=== PATIENT | female | born 1960 | race Caucasian/White ===

== ENCOUNTER 2019-01-15 10:15 | Inpatient (IN) | payer BC ==
[2019-01-15 12:09] VITALS: BMI 31.5
--- NOTE | 2019-01-15 13:56 | HP ---
COWS - Scale Resting Pulse: 0= [place] 80 or Below Sweatin= Chills/Flushing Restless Observation: 1= Difficult to Sit Still Pupil Size: 1= Pupils >than Normal Bone or Joint Aches: 2= Severe Diffuse Aches Runny Nose/ Eye Tearin= Runny Nose/Eyes GI Upset > 30mins: 2= Nausea/Diarrhea Tremor Observation: 2= Slight Tremor Visible Yawning Observation: 1= 1-2x During Session Anxiety or Irritability: 2=Irritable/Anxious Goose Flesh Skin: 0=Smooth Skin COWS Score: 14 CIWA Score - Admission Criteria [facility] Guidelines: Admission for Medically Managed Detox: Requires at least one of the followin. CIWA greater than 12 2. Seizures within the past 24 hours 3. Delirium tremens within the past 24 hours 4. Hallucinations within the past 24 hours 5. Acute intervention needed for co occurring medical disorder 6. Acute intervention needed for co occurring psychiatric disorder 7. Severe withdrawal that cannot be handled at a lower level of care (continued vomiting, continued diarrhea, abnormal vital signs) requiring intravenous medication and/or fluids 8. Admission ROS [facility] - HPI Chief Complaint: i need help to stop using heroin Allergies/Adverse Reactions: Allergies Allergy/AdvReac Type Severity Reaction Status Date / Time No Known Allergies Allergy Verified 01/15/19 11:58 History of Present Illness: this 58 years old female with heroin dependence,need help to stop,withdrawal symptom,never been in detox before, type 2 dm no med hypertension and barrette esophagus denied seizure denied syncope arthritis both knees tear meniscus both knees anxiety,depression,insomnia low back pain - Ebola screening Have you traveled outside of the country in the last 21 days: No Have you had contact with anyone from an Ebola affected area: No Do you have a fever: No - Review of Systems Constitutional: Chills, Malaise, Night Sweats, Changes in sleep EENT: reports: Tearing, Nose Congestion Respiratory: reports: No Symptoms reported, Other (asthma) Cardiac: reports: No Symptoms Reported GI: reports: Nausea, Poor Appetite, Abdominal cramping : reports: No Symptoms Reported Musculoskeletal: reports: Back Pain, Joint Pain, Muscle Pain Integumentary: reports: Dryness Neuro: reports: Headache, Tremors Endocrine: reports: No Symptoms Reported, Other (type 2 dm) Hematology: reports: No Symptoms Reported Psychiatric: reports: No Sypmtoms Reported, Judgement Intact, Mood/Affect Appropiate, Anxious, Depressed Other Systems: Reviewed and Negative Patient History - Patient Medical History Hx Anemia: No Hx Asthma: Yes (on albuterol inhaler) Hx Chronic Obstructive Pulmonary Disease (COPD): No Hx Cancer: No Hx Cardiac Disorders: No Hx Congestive Heart Failure: No Hx Hypertension: Yes (on med) Hx Hypercholesterolemia: No Hx Pacemaker: No HX Cerebrovascular Accident: No Hx Seizures: No Hx Dementia: No Hx Diabetes: Yes (type 2 dm) Hx Gastrointestinal Disorders: Yes (amin esophagus) Hx Liver Disease: No Hx Genitourinary Disorders: No Hx Sexually Transmitted Disorders: No Hx Renal Disease (ESRD): No Hx Thyroid Disease: No Hx Human Immunodeficiency Virus (HIV): No (last 09/15) Hx Hepatitis C: No Hx Depression: Yes Hx Suicide Attempt: No Hx Bipolar Disorder: No Hx Schizophrenia: No Other Medical History: insomnia,no suicidlal,no homicidal - Patient Surgical History Past Surgical History: No Hx Hysterectomy: Yes (for dropped uterus) - PPD History Previous Implant?: Yes Documented Results: Negative w/o proof Implanted On Prior R Admission?: No PPD to be Administered?: No - Reproductive History Patient is a Female of Child Bearing Age (11 -55 yrs old): No - Smoking Cessation Smoking history: Never smoked Have you smoked in the past 12 months: No - Substance & Tx. History Hx Alcohol Use: No Hx Substance Use: Yes Substance Use Type: Heroin Hx Substance Use Treatment: No - Substances abused Heroin Substance route: Inhalation Frequency: Daily Amount used: 1 bundle Age of first use: 57 Date of last use: 01/15/19 Family Disease History - Family Disease History Family History: Denies Admission Physical Exam BHS - Vital Signs Vital Signs: Vital Signs - 24 hr 01/15/19 11:57 Temperature 97.4 F L Pulse Rate 67 Respiratory 18 Rate Blood Pressure 168/96 - Physical General Appearance: Yes: Moderate Distress, Tremorous, Irritable, Sweating, Anxious HEENTM: Yes: Normal ENT Inspection, DAE, Pharynx Normal Respiratory: Yes: Lungs Clear, Normal Breath Sounds, No Respiratory Distress, Other (asthma) Neck: Yes: Within Normal Limits, Supple, Trachea in good position Breast: Yes: Breast Exam Deferred Cardiology: Yes: Within Normal Limits, Regular Rhythm, Regular Rate, S1, S2 Abdominal: Yes: Within Normal Limits, Normal Bowel Sounds, Non Tender, Flat, Soft, Other (transvaginal hysterctomy) Genitourinary: Yes: Within Normal Limits Back: Yes: Muscle Spasm Musculoskeletal: Yes: Back pain, Joint Stiffness, Muscle Pain Extremities: Yes: Tremors Neurological: Yes: observatory director II-XII NML intact, Fully Oriented, Alert, Motor Strength 5/5 Integumentary: Yes: Dry Lymphatic: Yes: Within Normal Limits - Diagnostic (1) Opioid dependence with withdrawal Current Visit: Yes Status: Acute (2) Essential hypertension Current Visit: Yes Status: Acute (3) DM2 (diabetes mellitus, type 2) Current Visit: Yes Status: Acute (4) Arthritis Current Visit: Yes Status: Acute (5) Low back pain Current Visit: Yes Status: Acute (6) Amin esophagus Current Visit: Yes Status: Acute Cleared for Admission S - Detox or Rehab [facility] Level of Care: Medically Managed Detox Regimen/Protocol: Methadone Screened but not Admitted - Documentation of Visit Screened but not Admitted: No Breathalyzer - Breathalyzer Breathalyzer: 0 Urine Drug Screen - Test Device Lot number: [id number] Expiration date: 10/27/20 - Control Is test valid?: Yes - Results Drug screen NEGATIVE: No Urine drug screen results: FEN-Fentanyl, MOP-Opiates, OXY-Oxycodone Inpatient Rehab Admission - Rehab Decision to Admit Inpatient rehab admission?: No
[2019-01-15] MEDS ORDERED: MAG HYDROX/AL HYDROX/SIMETH 30 ML UNIT-DOSE CUP PO PRN (14:14)
[2019-01-15] MEDS ORDERED: MAGNESIUM HYDROX 2400MG/30ML ORAL SUSPENSION 30 ML CUP PO PRN (14:14)
[2019-01-15] MEDS ORDERED: cloNIDine HCL 0.1 MG TABLET PO PRN (14:14)
[2019-01-15] MEDS ORDERED: MENTHOL/PHENOL 1 EACH UD MM PRN (14:14)
[2019-01-15] MEDS ORDERED: METHADONE HCL 10 MG TABLET (FOR DETOX USE ONLY) PO ONE ×2 (14:14→15:15)
[2019-01-15] MEDS ORDERED: BISMUTH SUBSALICYLATE 262 MG/15 ML BTL PO PRN (14:14)
[2019-01-15] MEDS ORDERED: MAGNESIUM CITRATE 300 ML BOTTLE PO PRN (14:14)
[2019-01-15] MEDS ORDERED: ACETAMINOPHEN 325 MG TABLET (FP) PO PRN (14:14)
[2019-01-15] MEDS ORDERED: IBUPROFEN 400 MG TABLET (FP) PO PRN (14:14)
[2019-01-15] MEDS: diazePAM 5 MG TABLET PO PRN ×2 (16:05→20:40)
--- NOTE | 2019-01-15 16:28 | EKG ---
Test Reason : Blood Pressure : / mmHG Vent. Rate : 066 BPM Atrial Rate : 066 BPM P-R Int : 172 ms QRS Dur : 092 ms QT Int : 400 ms P-R-T Axes : 047 002 027 degrees QTc Int : 419 ms NORMAL SINUS RHYTHM NONSPECIFIC T WAVE ABNORMALITY ABNORMAL ECG NO PREVIOUS ECGS AVAILABLE Confirmed by DANIEL NAVARRO MD ([id number]) on 01/15/2019 4:28:04 PM Referred By: Confirmed By:DANIEL NAVARRO MD
[2019-01-15 16:39] LABS: HEMATOCRIT 34.2 % (32.4-45.2); HEMOGLOBIN 10.8 GM/dL (10.7-15.3); MCH 23.8 pg (25.7-33.7); MCHC 31.6 g/dl (32.0-36.0); MEAN CELL VOLUME 75.5 fl (80-96); PLATELET COUNT 346 K/MM3 (134-434); RBC 4.54 M/mm3 (3.60-5.2); RDW 17.8 % (11.6-15.6); WHITE BLOOD COUNT 7.4 K/mm3 (4.0-10.0)
[2019-01-15 16:48] LABS: ALBUMIN 3.6 g/dl (3.4-5.0); BILIRUBIN,TOTAL 0.8 mg/dL (0.2-1); BLOOD UREA NITROGEN 11.4 mg/dL (7-18); CREATININE 0.8 mg/dL (0.55-1.3); POTASSIUM 4.4 mmol/L (3.5-5.1); TOT PROT 7.5 g/dl (6.4-8.2)
[2019-01-15] MEDS: cloNIDine HCL 0.1 MG TABLET PO PRN (17:04)
[2019-01-15] MEDS: METHOCARBAMOL 500 MG TABLET PO PRN ×2 (17:04→22:19)
[2019-01-15] MEDS: THIAMINE HCL 100 MG TABLET (FP) PO SCH (22:17)
[2019-01-15] MEDS: MELATONIN 5 MG TABLETS PO PRN (22:17)
[2019-01-16] MEDS: hydrOXYzine PAMOATE 25 MG CAPSULE (FP) PO PRN ×2 (04:04→20:53)
[2019-01-16] MEDS: diazePAM 5 MG TABLET PO PRN ×4 (04:04→20:53)
--- NOTE | 2019-01-16 09:06 | PN ---
BHS COWS - Scale Resting Pulse: 0= [place] 80 or Below Sweatin= Chills/Flushing Restless Observation: 0= Sits Still Pupil Size: 1= Pupils >than Normal Bone or Joint Aches: 1= Mild Discomfort Runny Nose/ Eye Tearin= None GI Upset > 30mins: 1= Stomach Cramp Tremor Observation of Outstretched Hands: 2= Slight Tremor Visible Yawning Observation: 0= None Anxiety or Irritability: 2=Irritable/Anxious Goose Flesh Skin: 3=Piloerection COWS Score: 11 BHS Progress Note (SOAP) Subjective: 58 years old female admitted on 01/15/19 for acute opiate withdrawal sx management doing well with methadone detox regimen tolerate well less tremor sleep better at night chronic back pain treated with lidocaine patch and robaxin long history of hypertension treated with lisinopril 20 mg po od GERD treated wtih zantac 150 mg po bid discontinue motrin patient was taking suboxone 8-2mg sl tid last filled 7 days on 12/07/18 S1S2 Regular clear lung bilaterally abdomen soft hyperactive bowel sound x 4 discuss the possibility of methadone maintenance program for chronic pain and opiate misuse Objective: 01/16/19 09:13 Vital Signs Temperature 97.1 F L 01/16/19 06:46 Pulse Rate 53 L 01/16/19 06:46 Respiratory Rate 18 01/16/19 06:46 Blood Pressure 139/71 01/16/19 06:46 O2 Sat by Pulse Oximetry (%) Laboratory Last Values WBC 7.4 K/mm3 (4.0-10.0) 01/15/19 14:30 RBC 4.54 M/mm3 (3.60-5.2) 01/15/19 14:30 Hgb 10.8 GM/dL (10.7-15.3) 01/15/19 14:30 Hct 34.2 % (32.4-45.2) 01/15/19 14:30 MCV 75.5 fl (80-96) L 01/15/19 14:30 MCH 23.8 pg (25.7-33.7) L 01/15/19 14:30 MCHC 31.6 g/dl (32.0-36.0) L 01/15/19 14:30 RDW 17.8 % (11.6-15.6) H 01/15/19 14:30 Plt Count 346 K/MM3 (134-434) 01/15/19 14:30 MPV 7.0 fl (7.5-11.1) L 01/15/19 14:30 Sodium 141 mmol/L (136-145) 01/15/19 14:30 Potassium 4.4 mmol/L (3.5-5.1) 01/15/19 14:30 Chloride 106 mmol/L (98-107) 01/15/19 14:30 Carbon Dioxide 29 mmol/L (21-32) 01/15/19 14:30 Anion Gap 5 MMOL/L (8-16) L 01/15/19 14:30 BUN 11.4 mg/dL (7-18) 01/15/19 14:30 Creatinine 0.8 mg/dL (0.55-1.3) 01/15/19 14:30 Est GFR (CKD-EPI)AfAm 93.53 01/15/19 14:30 Est GFR (CKD-EPI)NonAf 80.70 01/15/19 14:30 POC Glucometer 133 UNITS (80-120) 01/15/19 13:41 Random Glucose 94 mg/dL (74-106) 01/15/19 14:30 Calcium 9.0 mg/dL (8.5-10.1) 01/15/19 14:30 Total Bilirubin 0.8 mg/dL (0.2-1) 01/15/19 14:30 AST 18 U/L (15-37) 01/15/19 14:30 ALT 20 U/L (13-61) 01/15/19 14:30 Alkaline Phosphatase 87 U/L (45-117) 01/15/19 14:30 Total Protein 7.5 g/dl (6.4-8.2) 01/15/19 14:30 Albumin 3.6 g/dl (3.4-5.0) 01/15/19 14:30 lab noted Assessment: 01/16/19 09:14 opiate withdrawal sx hypertension GERD chronic back pain Plan: continue methadone detox regimen and supportive measure
[2019-01-16] MEDS ORDERED: METHADONE (DETOX) 20 MG, METHADONE (DETOX) 5 MG PO ONE (10:00)
[2019-01-16] MEDS ORDERED: METHADONE HCL 5 MG TABLET (FOR DETOX USE ONLY) PO ONE (10:00)
[2019-01-16] MEDS ORDERED: RANITIDINE HCL 150 MG TABLET (FP) PO SCH (10:00)
[2019-01-16] MEDS: PRENATAL VITAMINS W/ FOLIC ACID TABLET (FP) PO SCH (10:38)
[2019-01-16] MEDS: LISINOPRIL 20 MG PO SCH (10:38)
[2019-01-16] MEDS: PATIENT'S OWN MEDICATION (NON-FORMULARY) (Omeprazole [Omeprazole] 20 MG) PO SCH (10:38)
[2019-01-16] MEDS: LIDOCAINE 5% TOPICAL PATCH TP SCH (10:39)
[2019-01-16] MEDS: METHOCARBAMOL 500 MG TABLET PO PRN ×2 (12:33→20:53)
[2019-01-16] MEDS: cloNIDine HCL 0.1 MG TABLET PO PRN (14:45)
[2019-01-16] MEDS: THIAMINE HCL 100 MG TABLET (FP) PO SCH (21:00)
[2019-01-16] MEDS: LIDOCAINE PATCH REMOVAL MC SCH (21:00)
[2019-01-16 23:08] LABS: EPI CELLS 1.3 /HPF (0-5/HPF); HYALINE CASTS 0 /lpf (0-8); PH,URINE 8.5 (5.0-8.0); URINE APPEARANCE CLEAR; URINE BACTERIA 22.5 /hpf (NEGATIVE); URINE BILIRUBIN NEGATIVE (NEGATIVE); URINE COLOR YELLOW; URINE GLUCOSE (UA) NEGATIVE (NEGATIVE); URINE KETONE NEGATIVE (NEGATIVE); URINE LEUK ESTERASE TRACE (NEGATIVE); URINE NITRITE NEGATIVE (NEGATIVE); URINE PROTEIN NEGATIVE (NEGATIVE); URINE RBC 2 /hpf (0-4); URINE UROBILINOGEN 0.2 mg/dL (0.2-1.0); URINE WBC 2 /hpf (0-5)
[2019-01-16] MEDS: MELATONIN 5 MG TABLETS PO PRN (23:31)
[2019-01-17] MEDS: diazePAM 5 MG TABLET PO PRN ×5 (04:50→22:37)
[2019-01-17] MEDS: ACETAMINOPHEN 325 MG TABLET (FP) PO PRN ×2 (04:50→19:35)
[2019-01-17] MEDS: METHOCARBAMOL 500 MG TABLET PO PRN ×3 (04:55→20:43)
[2019-01-17] MEDS: hydrOXYzine PAMOATE 25 MG CAPSULE (FP) PO PRN ×3 (04:59→20:42)
--- NOTE | 2019-01-17 09:10 | PN ---
BHS COWS - Scale Resting Pulse: 0= [place] 80 or Below Sweatin= Chills/Flushing Restless Observation: 0= Sits Still Pupil Size: 1= Pupils >than Normal Bone or Joint Aches: 1= Mild Discomfort Runny Nose/ Eye Tearin= Nasal Congestion GI Upset > 30mins: 1= Stomach Cramp Tremor Observation of Outstretched Hands: 1= Tremor [place], Not Seen Yawning Observation: 1= 1-2x During Session Anxiety or Irritability: 1=Feels Anxious/Irritable Goose Flesh Skin: 0=Smooth Skin COWS Score: 8 S Progress Note (SOAP) Subjective: doing well with methadone detox regimen chronic back pain resolved by lidocaine patch and robaxin mild body aches with less tremor resting on bed comfortably aftercare [place] encourage medication assisted treatment Objective: 01/17/19 09:07 Vital Signs Temperature 97 F L 01/16/19 21:51 Pulse Rate 71 01/16/19 21:51 Respiratory Rate 18 01/17/19 06:30 Blood Pressure 136/83 01/16/19 21:51 O2 Sat by Pulse Oximetry (%) Laboratory Last Values WBC 7.4 K/mm3 (4.0-10.0) 01/15/19 14:30 RBC 4.54 M/mm3 (3.60-5.2) 01/15/19 14:30 Hgb 10.8 GM/dL (10.7-15.3) 01/15/19 14:30 Hct 34.2 % (32.4-45.2) 01/15/19 14:30 MCV 75.5 fl (80-96) L 01/15/19 14:30 MCH 23.8 pg (25.7-33.7) L 01/15/19 14:30 MCHC 31.6 g/dl (32.0-36.0) L 01/15/19 14:30 RDW 17.8 % (11.6-15.6) H 01/15/19 14:30 Plt Count 346 K/MM3 (134-434) 01/15/19 14:30 MPV 7.0 fl (7.5-11.1) L 01/15/19 14:30 Sodium 141 mmol/L (136-145) 01/15/19 14:30 Potassium 4.4 mmol/L (3.5-5.1) 01/15/19 14:30 Chloride 106 mmol/L (98-107) 01/15/19 14:30 Carbon Dioxide 29 mmol/L (21-32) 01/15/19 14:30 Anion Gap 5 MMOL/L (8-16) L 01/15/19 14:30 BUN 11.4 mg/dL (7-18) 01/15/19 14:30 Creatinine 0.8 mg/dL (0.55-1.3) 01/15/19 14:30 Est GFR (CKD-EPI)AfAm 93.53 01/15/19 14:30 Est GFR (CKD-EPI)NonAf 80.70 01/15/19 14:30 POC Glucometer 96 UNITS (80-120) 01/17/19 04:53 Random Glucose 94 mg/dL (74-106) 01/15/19 14:30 Calcium 9.0 mg/dL (8.5-10.1) 01/15/19 14:30 Total Bilirubin 0.8 mg/dL (0.2-1) 01/15/19 14:30 AST 18 U/L (15-37) 01/15/19 14:30 ALT 20 U/L (13-61) 01/15/19 14:30 Alkaline Phosphatase 87 U/L (45-117) 01/15/19 14:30 Total Protein 7.5 g/dl (6.4-8.2) 01/15/19 14:30 Albumin 3.6 g/dl (3.4-5.0) 01/15/19 14:30 Urine Color Yellow 01/16/19 14:55 Urine Appearance Clear 01/16/19 14:55 Urine pH 8.5 (5.0-8.0) H 01/16/19 14:55 Ur Specific [place] 1.010 (1.010-1.035) 01/16/19 14:55 Urine Protein Negative (NEGATIVE) 01/16/19 14:55 Urine Glucose (UA) Negative (NEGATIVE) 01/16/19 14:55 Urine Ketones Negative (NEGATIVE) 01/16/19 14:55 Urine Blood Negative (NEGATIVE) 01/16/19 14:55 Urine Nitrite Negative (NEGATIVE) 01/16/19 14:55 Urine Bilirubin Negative (NEGATIVE) 01/16/19 14:55 Urine Urobilinogen 0.2 mg/dL (0.2-1.0) 01/16/19 14:55 Ur Leukocyte Esterase Trace (NEGATIVE) 01/16/19 14:55 Urine WBC (Auto) 2 /hpf (0-5) 01/16/19 14:55 Urine RBC (Auto) 2 /hpf (0-4) 01/16/19 14:55 Urine Casts (Auto) 0 /lpf (0-8) 01/16/19 14:55 U Epithel Cells (Auto) 1.3 /HPF (0-5/HPF) 01/16/19 14:55 Urine Bacteria (Auto) 22.5 /hpf (NEGATIVE) 01/16/19 14:55 RPR Titer Nonreactive (NONREACTIVE) 01/15/19 14:30 lb noted Assessment: 01/17/19 09:09 opiate withdrawal sx 01/17/19 09:09 alert orientedf x 3 speech clearly coherently 01/17/19 09:10 S1S2 Regular Plan: continue methadone detox regimen
[2019-01-17] MEDS ORDERED: METHADONE HCL 10 MG TABLET (FOR DETOX USE ONLY) PO ONE ×2 (10:00)
[2019-01-17] MEDS: PRENATAL VITAMINS W/ FOLIC ACID TABLET (FP) PO SCH (10:40)
[2019-01-17] MEDS: LIDOCAINE 5% TOPICAL PATCH TP SCH (10:40)
[2019-01-17] MEDS: PATIENT'S OWN MEDICATION (NON-FORMULARY) (Omeprazole [Omeprazole] 20 MG) PO SCH (10:40)
[2019-01-17] MEDS: LISINOPRIL 20 MG PO SCH (10:40)
[2019-01-17] MEDS: LIDOCAINE PATCH REMOVAL MC SCH (22:35)
[2019-01-17] MEDS: THIAMINE HCL 100 MG TABLET (FP) PO SCH (22:35)
[2019-01-17] MEDS: MELATONIN 5 MG TABLETS PO PRN (22:38)
[2019-01-18] MEDS: IBUPROFEN 400 MG TABLET (FP) PO PRN ×2 (01:23→09:31)
--- NOTE | 2019-01-18 02:36 | PN ---
[facility] Progress Note Note: Patient was found on the floor in front of her room. Staff reports hearing a loud noise, went to the room and found her on the floor. Patient reports that her bilateral lower extremities are weak and wobbly. She denies head trauma, loss of consciousness, bruises and ecchymosis. She is complaining of back pain and left shoulder pain. Her back pain is chronic because prior to the fall she was complaining of back pain. She denies LOC, head trauma and dizziness. No injury noted on examination. Patient is alert and oriented to person, place and time. Fall was unwitnessed and fall protocol #1 initiated. Patient is to be transferred to ER, refused and signed the refusal of treatment form. Vital Signs Temperature 96.6 F L 01/18/19 01:20 Pulse Rate 74 01/18/19 01:20 Respiratory Rate 18 01/18/19 01:20 Blood Pressure 141/92 01/18/19 01:20 O2 Sat by Pulse Oximetry (%) PHYSICAL EXAM: GENERAL: Mild confusion noted post fall. Patient complains of generalized aches and pain HEENT: Normocephalic without evidence of trauma. Sclera and conjunctiva normal. PERRLA. Ear canals patent, tympanic membrane are clear, No Sherwood's sign. Facial bones are non tender to palpation and stable. No midline point tenderness, no masses, no JVD of the neck. Full range of motion of the neck without limitation or pain. Mucus membrane moist CHEST: No surface trauma. Lungs clear to auscultation HEART: Regular rate and rhythm. No murmur, rub or gallop ABDOMEN: No abrasion, ecchymosis or surface trauma noted. No flank ecchymosis. EXTREMITIES:No surface trauma. Full range of motion without limitation or pain. good strength in all extremities. All peripheral pulses are intact and equal. Complains of left elbow discomfort. NEURO: Alert and oriented with minimal confusion at this time. Cranial nerves intact. Motor and sensory exam non focal. Reflexes are symmetric ACTION: Motrin 400mg tablet oral ordered Continue to monitor patient
[2019-01-18] MEDS: METHOCARBAMOL 500 MG TABLET PO PRN (02:53)
[2019-01-18] MEDS: hydrOXYzine PAMOATE 25 MG CAPSULE (FP) PO PRN (02:53)
[2019-01-18] MEDS: diazePAM 5 MG TABLET PO PRN (02:53)
[2019-01-18] MEDS ORDERED: METHADONE HCL 5 MG TABLET (FOR DETOX USE ONLY) PO ONE (06:00)
--- NOTE | 2019-01-18 09:00 | DS ---
[facility] Detox Discharge Summary Admission Date: 01/15/19 Discharge Date: 01/18/19 - History Present History: Sedative Dependence Additional Comments: 58 years old female admitted on 01/15/19 for acute opiate withdrawal sx management doing well with methadone detox regimen no complication through out the detox stay but unwitnessed fall on 01/17/19 placed on fall precaution #1 monitoring refused ER fall protocol observed patient ambulating on hallway steady gait denies dizziness denies pain extremities and trunk no ecchymosis noted full range of motion no wheezing bilaterally alert oriented x 3 patient prefers to return to primary care provider De. Vasquez at [facility] patient visited primary provider every 2-3 months last visited "months" ago has medication at home Pertinent Past History: encourage the patient bringing in medication list and lab report to Dr. Vasquez for follow up bp managed well by lisinopril GERD controlled by Omeprazole recommend the patient seeking pain management for chronic back pain possible medication assisted treatment program - Physical Exam Results Vital Signs: Vital Signs Temperature 98.6 F 01/18/19 07:05 Pulse Rate 59 L 01/18/19 07:05 Respiratory Rate 18 01/18/19 07:05 Blood Pressure 138/80 01/18/19 07:05 O2 Sat by Pulse Oximetry (%) Pertinent Admission Physical Exam Findings: opiate withdrawal sx Laboratory Last Values WBC 7.4 K/mm3 (4.0-10.0) 01/15/19 14:30 RBC 4.54 M/mm3 (3.60-5.2) 01/15/19 14:30 Hgb 10.8 GM/dL (10.7-15.3) 01/15/19 14:30 Hct 34.2 % (32.4-45.2) 01/15/19 14:30 MCV 75.5 fl (80-96) L 01/15/19 14:30 MCH 23.8 pg (25.7-33.7) L 01/15/19 14:30 MCHC 31.6 g/dl (32.0-36.0) L 01/15/19 14:30 RDW 17.8 % (11.6-15.6) H 01/15/19 14:30 Plt Count 346 K/MM3 (134-434) 01/15/19 14:30 MPV 7.0 fl (7.5-11.1) L 01/15/19 14:30 Sodium 141 mmol/L (136-145) 01/15/19 14:30 Potassium 4.4 mmol/L (3.5-5.1) 01/15/19 14:30 Chloride 106 mmol/L (98-107) 01/15/19 14:30 Carbon Dioxide 29 mmol/L (21-32) 01/15/19 14:30 Anion Gap 5 MMOL/L (8-16) L 01/15/19 14:30 BUN 11.4 mg/dL (7-18) 01/15/19 14:30 Creatinine 0.8 mg/dL (0.55-1.3) 01/15/19 14:30 Est GFR (CKD-EPI)AfAm 93.53 01/15/19 14:30 Est GFR (CKD-EPI)NonAf 80.70 01/15/19 14:30 POC Glucometer 83 UNITS (80-120) 01/18/19 06:24 Random Glucose 94 mg/dL (74-106) 01/15/19 14:30 Calcium 9.0 mg/dL (8.5-10.1) 01/15/19 14:30 Total Bilirubin 0.8 mg/dL (0.2-1) 01/15/19 14:30 AST 18 U/L (15-37) 01/15/19 14:30 ALT 20 U/L (13-61) 01/15/19 14:30 Alkaline Phosphatase 87 U/L (45-117) 01/15/19 14:30 Total Protein 7.5 g/dl (6.4-8.2) 01/15/19 14:30 Albumin 3.6 g/dl (3.4-5.0) 01/15/19 14:30 Urine Color Yellow 01/16/19 14:55 Urine Appearance Clear 01/16/19 14:55 Urine pH 8.5 (5.0-8.0) H 01/16/19 14:55 Ur Specific [place] 1.010 (1.010-1.035) 01/16/19 14:55 Urine Protein Negative (NEGATIVE) 01/16/19 14:55 Urine Glucose (UA) Negative (NEGATIVE) 01/16/19 14:55 Urine Ketones Negative (NEGATIVE) 01/16/19 14:55 Urine Blood Negative (NEGATIVE) 01/16/19 14:55 Urine Nitrite Negative (NEGATIVE) 01/16/19 14:55 Urine Bilirubin Negative (NEGATIVE) 01/16/19 14:55 Urine Urobilinogen 0.2 mg/dL (0.2-1.0) 01/16/19 14:55 Ur Leukocyte Esterase Trace (NEGATIVE) 01/16/19 14:55 Urine WBC (Auto) 2 /hpf (0-5) 01/16/19 14:55 Urine RBC (Auto) 2 /hpf (0-4) 01/16/19 14:55 Urine Casts (Auto) 0 /lpf (0-8) 01/16/19 14:55 U Epithel Cells (Auto) 1.3 /HPF (0-5/HPF) 01/16/19 14:55 Urine Bacteria (Auto) 22.5 /hpf (NEGATIVE) 01/16/19 14:55 RPR Titer Nonreactive (NONREACTIVE) 01/15/19 14:30 lab noted Vital Signs Temperature 98.6 F 01/18/19 07:05 Pulse Rate 59 L 01/18/19 07:05 Respiratory Rate 18 01/18/19 07:05 Blood Pressure 138/80 01/18/19 07:05 O2 Sat by Pulse Oximetry (%) - Treatment Hospital Course: Detox Protocol Followed, Detoxed Safely, Responded well, Discharged Condition Good, Rehab Referral Accepted Patient has Accepted a Rehab Referral to: community support group - Medication Discharge Medications: Ambulatory Orders Buprenorphine HCl/Naloxone HCl [Suboxone 4 mg-1 mg Sl Film] 1 each SL TID #24 film MDD 3 12/07/18 Lisinopril 10 mg PO DAILY 12/07/18 Meloxicam 15 mg PO DAILY 12/07/18 Omeprazole 20 mg PO DAILY 12/07/18 Meloxicam 15 mg PO DAILY 01/15/19 Omeprazole 40 mg PO DAILY 01/15/19 Albuterol Sulfate [Proventil HFA Inhaler -] 2 inh PO TID PRN #1 hfa.aer.ad 01/17 Lisinopril 20 mg PO DAILY #30 tablet 01/17/19 - Diagnosis (1) DM2 (diabetes mellitus, type 2) Current Visit: Yes Status: Chronic Qualifiers: Diabetes mellitus press tender long goods insulin use: without fpc use Diabetes mellitus complication status: without complication Qualified Code(s): E11.9 - Type 2 diabetes mellitus without complications (2) Low back pain Current Visit: Yes Status: Chronic Qualifiers: Chronicity: chronic Back pain laterality: unspecified Sciatica presence: without sciatica Qualified Code(s): M54.5 - Low back pain; G89.29 - Other chronic pain (3) Opioid dependence with withdrawal Current Visit: Yes Status: Acute (4) HTN (hypertension) Current Visit: Yes Status: Chronic Qualifiers: Hypertension type: essential hypertension Qualified Code(s): I10 - Essential (primary) hypertension (5) GERD (gastroesophageal reflux disease) Current Visit: Yes Status: Chronic Qualifiers: Esophagitis presence: esophagitis presence not specified Qualified Code(s) : K21.9 - Gastro-esophageal reflux disease without esophagitis - AMA Did Patient Leave Against Medical Advice: No
[2019-01-18] MEDS: PRENATAL VITAMINS W/ FOLIC ACID TABLET (FP) PO SCH (09:31)
[2019-01-18] MEDS: LISINOPRIL 20 MG PO SCH (09:33)
[2019-01-18] MEDS: PATIENT'S OWN MEDICATION (NON-FORMULARY) (Omeprazole [Omeprazole] 20 MG) PO SCH (09:33)
[2019-01-18 09:38] VITALS: BP 148/85; PULSE 77; TEMP 97.5
[2019-01-18] MEDS ORDERED: METHADONE (DETOX) 10 MG, METHADONE (DETOX) 5 MG PO ONE (10:00)
[2019-01-19] MEDS ORDERED: METHADONE HCL 10 MG TABLET (FOR DETOX USE ONLY) PO ONE (10:00)
[2019-01-20] MEDS ORDERED: METHADONE HCL 5 MG TABLET (FOR DETOX USE ONLY) PO ONE (06:00)
== END 2019-01-18 10:00 | disposition home or self-care (01) | DRG 897 ==
LOC: YASAS 10:15 → Y3N 14:36
PROVIDERS: ADMIT Surgery; ATTEND Surgery
PROC: HZ2ZZZZ Detoxification Services for Substance Abuse Treatment (ICD-10-PCS; principal; 2019-01-15)
DX: F11.23 Opioid dependence with withdrawal (principal); I10 Essential (primary) hypertension; E11.9 Type 2 diabetes mellitus without complications; K21.9 Gastro-esophageal reflux disease without esophagitis; M54.5 Low back pain; G89.29 Other chronic pain; R53.1 Weakness; R41.0 Disorientation, unspecified; K22.70 Barrett's esophagus without dysplasia; W18.39XA Other fall on same level, initial encounter; Y93.89 Activity, other specified; Y92.238 Other place in hospital as the place of occurrence of the external cause
CPT/HCPCS: 36415; 80053; 81003; 82962; 85027; 86480; 86593; 93005; 93010; J0735

== ENCOUNTER 2019-04-09 10:47 | Inpatient (IN) | payer BC ==
[2019-04-09 11:14] VITALS: BMI 31.1
--- NOTE | 2019-04-09 12:00 | HP ---
COWS - Scale Resting Pulse: 1= [place] 81-100 Sweatin= No chills or Flushing Restless Observation: 1= Difficult to Sit Still Pupil Size: 0= Normal to Room Light Bone or Joint Aches: 1= Mild Discomfort Runny Nose/ Eye Tearin= None GI Upset > 30mins: 0= None Tremor Observation: 1= Tremor [place], Not Seen Yawning Observation: 1= 1-2x During Session Anxiety or Irritability: 2=Irritable/Anxious Goose Flesh Skin: 0=Smooth Skin COWS Score: 7 CIWA Score - Admission Criteria OASAS Guidelines: Admission for Medically Managed Detox: Requires at least one of the followin. CIWA greater than 12 2. Seizures within the past 24 hours 3. Delirium tremens within the past 24 hours 4. Hallucinations within the past 24 hours 5. Acute intervention needed for co occurring medical disorder 6. Acute intervention needed for co occurring psychiatric disorder 7. Severe withdrawal that cannot be handled at a lower level of care (continued vomiting, continued diarrhea, abnormal vital signs) requiring intravenous medication and/or fluids 8. Admitting History and Physical - Admission Chief Complaint: " I want to get to detox and clean up my life." History of Present Illness: 58 year old female with history of opioid dependence with some withdrawals. She is using 10 bags of heroin daily intranasally, last used this morning 5 bags. She has never overdosed and does not carry a narcan nasal spray. Last admitted 12/2018 and relapsed immediately after being discharged. No ciggarettes or etoh use. PMH: None, amin's Disease, HTN, Asthma, Urinary Stress incontinence Psych: None Psurg: History of lumpectomy for Breast Ca.surgery in abdomen History Source: Patient Limitations to Obtaining History: No Limitations - Past Medical History Cardiovascular: Yes: HTN Pulmonary: Yes: Asthma ...: No - Past Surgical History Past Surgical History: Yes: None - Smoking History Smoking history: Never smoked Have you smoked in the past 12 months: No - Alcohol/Substance Use Hx Alcohol Use: No History of Substance Use: reports: Heroin Date of Last Use: 04/09/19 - Social History Usual Living Arrangement: Yes: Alone Do you think of yourself as: Straight/Heterosexual ADL: Independent Occupation: former nurse History of Recent Travel: No Admission ROS S - HPI Allergies/Adverse Reactions: Allergies Allergy/AdvReac Type Severity Reaction Status Date / Time No Known Allergies Allergy Verified 04/09/19 11:02 Exam Limitations: No Limitations - Ebola screening Have you traveled outside of the country in the last 21 days: No (N) Have you had contact with anyone from an Ebola affected area: No Have you been sick,other than usual withdrawal symptoms: No Do you have a fever: No - Review of Systems Constitutional: Loss of Appetite EENT: reports: No Symptoms Reported Respiratory: reports: No Symptoms reported, Cough Cardiac: reports: No Symptoms Reported GI: reports: Abdominal cramping : reports: No Symptoms Reported Musculoskeletal: reports: Back Pain Integumentary: reports: No Symptoms Reported Neuro: reports: No Symptoms reported Endocrine: reports: No Symptoms Reported Hematology: reports: Anemia Psychiatric: reports: Agitated, Depressed Other Systems: Reviewed and Negative Patient History - Patient Medical History Hx Anemia: No Hx Asthma: Yes (on albuterol inhaler) Hx Chronic Obstructive Pulmonary Disease (COPD): No Hx Cancer: Yes (hx left breast cancer -- lumpectomy) Hx Cardiac Disorders: No Hx Congestive Heart Failure: No Hx Hypertension: Yes (on med) Hx Hypercholesterolemia: No Hx Pacemaker: No HX Cerebrovascular Accident: No Hx Seizures: No Hx Dementia: No Hx Diabetes: Yes (type 2 dm) Hx Gastrointestinal Disorders: Yes (amin esophagus) Hx Liver Disease: No Hx Genitourinary Disorders: No Hx Sexually Transmitted Disorders: No Hx Renal Disease (ESRD): No Hx Thyroid Disease: No Hx Human Immunodeficiency Virus (HIV): No Hx Hepatitis C: No Hx Depression: Yes Hx Suicide Attempt: No Hx Bipolar Disorder: No Hx Schizophrenia: No - Patient Surgical History Past Surgical History: No Hx Breast Surgery: Yes (left breast lumpectomy 2005) Hx Abdominal Surgery: Yes (hernia repair 2012) Hx Genitourinary Surgery: Yes (bladder/sling 2013) Hx Hysterectomy: Yes (2015) - Smoking Cessation Smoking history: Never smoked Have you smoked in the past 12 months: No Hx Chewing Tobacco Use: No Initiated information on smoking cessation: No - Substance & Tx. History Hx Alcohol Use: No Hx Substance Use: Yes Substance Use Type: Heroin Hx Substance Use Treatment: Yes - Substances abused Heroin Substance route: Inhalation Frequency: Daily Amount used: 1 bundle Age of first use: 57 Date of last use: 01/15/19 Admission Physical Exam BHS - Vital Signs Vital Signs: Vital Signs - 24 hr 04/09/19 11:01 Temperature 98.6 F Pulse Rate 93 H Respiratory 20 Rate Blood Pressure 134/89 - Physical General Appearance: Yes: Moderate Distress HEENTM: Yes: EOMI, Hearing grossly Normal, Normal ENT Inspection, Normocephalic , Normal Voice, DAE, Pharynx Normal, Tm's normal Respiratory: Yes: Chest Non-Tender, Lungs Clear, Normal Breath Sounds, No Respiratory Distress, No Accessory Muscle Use Neck: Yes: No masses,lesions,Nodules, Supple, Trachea in good position Breast: Yes: Breast Exam Deferred Cardiology: Yes: Regular Rhythm, Regular Rate, S1, S2 Abdominal: Yes: Non Tender, Soft, Increased Bowel Sounds, Protuberent Genitourinary: Yes: Within Normal Limits Back: Yes: Normal Inspection Musculoskeletal: Yes: full range of Motion, Gait Steady, Pelvis Stable Extremities: Yes: Normal Capillary Refill, Normal Inspection, Normal Range of Motion, Non-Tender Neurological: Yes: rn advice II-XII NML intact, Fully Oriented, Alert, Motor Strength 5/5, Normal Mood/Affect, Normal Response Integumentary: Yes: Normal Color, Warm Lymphatic: Yes: Within Normal Limits - Diagnostic (1) Arthritis Current Visit: Yes Status: Acute (2) Amin esophagus Current Visit: Yes Status: Acute (3) Chronic pain Current Visit: Yes Status: Acute Qualifiers: Chronic pain type: chronic pain syndrome Qualified Code(s): G89.4 - Chronic pain syndrome (4) Essential hypertension Current Visit: Yes Status: Acute (5) Opioid dependence with withdrawal Current Visit: Yes Status: Acute (6) Osteoarthritis of knees, bilateral Current Visit: Yes Status: Acute Qualifiers: Osteoarthritis type: primary Qualified Code(s): M17.0 - Bilateral primary osteoarthritis of knee Comment: for ortho - on meloxicam - for MRI (7) DM2 (diabetes mellitus, type 2) Current Visit: Yes Status: Chronic Qualifiers: Diabetes mellitus correction insulin use: without correction use Diabetes mellitus complication status: without complication Qualified Code(s): E11.9 - Type 2 diabetes mellitus without complications (8) GERD (gastroesophageal reflux disease) Current Visit: Yes Status: Chronic Qualifiers: Esophagitis presence: esophagitis presence not specified Qualified Code(s) : K21.9 - Gastro-esophageal reflux disease without esophagitis Comment: on meds (9) HTN (hypertension) Current Visit: Yes Status: Chronic Qualifiers: Hypertension type: essential hypertension Qualified Code(s): I10 - Essential (primary) hypertension Comment: on meds, sees primary (10) History of breast cancer Current Visit: Yes Status: Chronic Comment: gets regular mammograms (11) Low back pain Current Visit: Yes Status: Chronic Qualifiers: Chronicity: chronic Back pain laterality: unspecified Sciatica presence: without sciatica Qualified Code(s): M54.5 - Low back pain; G89.29 - Other chronic pain Screened but not Admitted - Documentation of Visit Screened but not Admitted: No Breathalyzer - Breathalyzer Breathalyzer: 0 Urine Drug Screen - Test Device Lot number: [id number] Expiration date: 10/27/20 - Control Is test valid?: Yes - Results Drug screen NEGATIVE: No Urine drug screen results: FEN-Fentanyl, MTD-Methadone, MOP-Opiates, OXY- Oxycodone Inpatient Rehab Admission - Rehab Decision to Admit Inpatient rehab admission?: No
[2019-04-09] MEDS ORDERED: IBUPROFEN 400 MG TABLET (FP) PO PRN (12:08)
[2019-04-09] MEDS ORDERED: MENTHOL/PHENOL 1 EACH UD MM PRN (12:08)
[2019-04-09] MEDS ORDERED: MAGNESIUM CITRATE 300 ML BOTTLE PO PRN (12:08)
[2019-04-09] MEDS ORDERED: MAG HYDROX/AL HYDROX/SIMETH 30 ML UNIT-DOSE CUP PO PRN (12:08)
[2019-04-09] MEDS ORDERED: MAGNESIUM HYDROX 2400MG/30ML ORAL SUSPENSION 30 ML CUP PO PRN (12:08)
[2019-04-09] MEDS ORDERED: BISMUTH SUBSALICYLATE 524 MG/30 ML UD PO PRN (12:08)
[2019-04-09] MEDS ORDERED: ACETAMINOPHEN 325 MG TABLET (FP) PO PRN ×2 (12:08)
[2019-04-09] MEDS ORDERED: ALBUTEROL SO4 8 GM HFA INHALER IH PRN (12:11)
[2019-04-09] MEDS ORDERED: METHADONE HCL 10 MG TABLET (FOR DETOX USE ONLY) PO ONE (13:30)
[2019-04-09] MEDS: METHOCARBAMOL 500 MG TABLET PO PRN ×2 (13:41→19:40)
[2019-04-09] MEDS: hydrOXYzine PAMOATE 25 MG CAPSULE (FP) PO PRN ×2 (14:34→19:40)
[2019-04-09 16:29] LABS: HEMATOCRIT 34.6 % (32.4-45.2); HEMOGLOBIN 10.5 GM/dL (10.7-15.3); MCH 23.1 pg (25.7-33.7); MCHC 30.5 g/dl (32.0-36.0); MEAN CELL VOLUME 75.9 fl (80-96); MEAN PLT VOLUME 7.2 fl (7.5-11.1); PLATELET COUNT 386 K/MM3 (134-434); RBC 4.56 M/mm3 (3.60-5.2); RDW 17.4 % (11.6-15.6); WHITE BLOOD COUNT 6.1 K/mm3 (4.0-10.0)
[2019-04-09 16:37] LABS: ALBUMIN 3.6 g/dl (3.4-5.0); BILIRUBIN,TOTAL 0.6 mg/dL (0.2-1); BLOOD UREA NITROGEN 12.4 mg/dL (7-18); CALCIUM 8.7 mg/dL (8.5-10.1); CREATININE 0.8 mg/dL (0.55-1.3); POTASSIUM 4.4 mmol/L (3.5-5.1); TOT PROT 7.3 g/dl (6.4-8.2)
[2019-04-09] MEDS: MELATONIN 5 MG TABLETS PO PRN (21:28)
[2019-04-09] MEDS: THIAMINE HCL 100 MG TABLET (FP) PO SCH (21:28)
[2019-04-09] MEDS: cloNIDine HCL 0.1 MG TABLET PO PRN (21:29)
[2019-04-10] MEDS: hydrOXYzine PAMOATE 25 MG CAPSULE (FP) PO PRN ×3 (07:07→21:55)
[2019-04-10] MEDS: METHOCARBAMOL 500 MG TABLET PO PRN ×3 (07:07→20:22)
[2019-04-10] MEDS ORDERED: METHADONE HCL 5 MG TABLET (FOR DETOX USE ONLY) ONE (08:24)
[2019-04-10] MEDS ORDERED: METHADONE HCL 10 MG TABLET (FOR DETOX USE ONLY) ONE (08:24)
--- NOTE | 2019-04-10 09:35 | PN ---
BHS COWS - Scale Resting Pulse: 0= [place] 80 or Below Sweatin= Chills/Flushing Restless Observation: 1= Difficult to Sit Still Pupil Size: 1= Pupils >than Normal Bone or Joint Aches: 2= Severe Diffuse Aches Runny Nose/ Eye Tearin= None GI Upset > 30mins: 2= Nausea/Diarrhea Tremor Observation of Outstretched Hands: 2= Slight Tremor Visible Yawning Observation: 0= None Anxiety or Irritability: 2=Irritable/Anxious Goose Flesh Skin: 3=Piloerection COWS Score: 14 BHS Progress Note (SOAP) Subjective: 58 years old female admitted on 04/09/19 for opiate withdrawal sx management treated with methadone detox regimen c/o general body ache treated with mobic "doctor does not want me to take" "I have bleeding" discontinue motrin begin lidocaine patch and kerry gillespie continue robaxin prn and vistaril prn Objective: 04/10/19 09:36 Vital Signs Temperature 97.2 F L 04/10/19 09:06 Pulse Rate 80 04/10/19 09:06 Respiratory Rate 16 04/10/19 09:06 Blood Pressure 112/67 04/10/19 09:06 O2 Sat by Pulse Oximetry (%) Laboratory Last Values WBC 6.1 K/mm3 (4.0-10.0) 04/09/19 12:30 RBC 4.56 M/mm3 (3.60-5.2) 04/09/19 12:30 Hgb 10.5 GM/dL (10.7-15.3) L 04/09/19 12:30 Hct 34.6 % (32.4-45.2) 04/09/19 12:30 MCV 75.9 fl (80-96) L 04/09/19 12:30 MCH 23.1 pg (25.7-33.7) L 04/09/19 12:30 MCHC 30.5 g/dl (32.0-36.0) L 04/09/19 12:30 RDW 17.4 % (11.6-15.6) H 04/09/19 12:30 Plt Count 386 K/MM3 (134-434) 04/09/19 12:30 MPV 7.2 fl (7.5-11.1) L 04/09/19 12:30 Sodium 137 mmol/L (136-145) 04/09/19 12:30 Potassium 4.4 mmol/L (3.5-5.1) 04/09/19 12:30 Chloride 104 mmol/L (98-107) 04/09/19 12:30 Carbon Dioxide 29 mmol/L (21-32) 04/09/19 12:30 Anion Gap 3 MMOL/L (8-16) L 04/09/19 12:30 BUN 12.4 mg/dL (7-18) 04/09/19 12:30 Creatinine 0.8 mg/dL (0.55-1.3) 04/09/19 12:30 Est GFR (CKD-EPI)AfAm 93.53 04/09/19 12:30 Est GFR (CKD-EPI)NonAf 80.70 04/09/19 12:30 Random Glucose 88 mg/dL (74-106) 04/09/19 12:30 Calcium 8.7 mg/dL (8.5-10.1) 04/09/19 12:30 Total Bilirubin 0.6 mg/dL (0.2-1) 04/09/19 12:30 AST 13 U/L (15-37) L 04/09/19 12:30 ALT 15 U/L (13-61) 04/09/19 12:30 Alkaline Phosphatase 86 U/L (45-117) 04/09/19 12:30 Total Protein 7.3 g/dl (6.4-8.2) 04/09/19 12:30 Albumin 3.6 g/dl (3.4-5.0) 04/09/19 12:30 lab noted Assessment: 04/10/19 09:38 opiate withdrawal sx Plan: continue methadone detox regimen
[2019-04-10] MEDS ORDERED: PANTOPRAZOLE 40 MG TABLET (FP) PO SCH (10:00)
[2019-04-10] MEDS ORDERED: PANTOPRAZOLE 20 MG TABLET (FP) PO SCH (10:00)
[2019-04-10] MEDS ORDERED: NICOTINE 14 MG/24 HOURS TOPICAL PATCH TD SCH (10:00)
[2019-04-10] MEDS ORDERED: OMEPRAZOLE 20 MG PO SCH (10:00)
[2019-04-10] MEDS ORDERED: METHADONE (DETOX) 20 MG, METHADONE (DETOX) 5 MG PO ONE (10:00)
[2019-04-10] MEDS: LISINOPRIL 20 MG TABLET (FP) PO SCH (10:25)
[2019-04-10] MEDS: PRENATAL VITAMINS W/ FOLIC ACID TABLET (FP) PO SCH (10:25)
--- NOTE | 2019-04-10 11:00 | PN ---
[facility] Progress Note Note: patient is angry about "I do not smoke, the nurse said you order nicotin for me " discussed the mistake with the patient and the nurse discontinue nicotin patch patient prefers to take methadone detox dose at 0900 am change methadone detox schedule to 9am
[2019-04-10] MEDS: LIDOCAINE 5% TOPICAL PATCH TP SCH (11:59)
[2019-04-10] MEDS: METHYL SALICYLATE/MENTHOL OINT 30 GM TUBE TP SCH ×2 (12:00→21:59)
[2019-04-10] MEDS ORDERED: FLU VACCINE QUAD 60 MCG/0.5 ML (MDV 19-20) IM ONE (12:00)
[2019-04-10] MEDS: PATIENT'S OWN MEDICATION (NON-FORMULARY) (Omeprazole 20 MG) PO SCH (15:41)
[2019-04-10] MEDS: THIAMINE HCL 100 MG TABLET (FP) PO SCH (21:54)
[2019-04-10] MEDS: LIDOCAINE PATCH REMOVAL MC SCH (21:54)
[2019-04-10] MEDS: cloNIDine HCL 0.1 MG TABLET PO PRN (21:55)
[2019-04-10] MEDS: MELATONIN 5 MG TABLETS PO PRN (21:56)
[2019-04-11] MEDS: METHOCARBAMOL 500 MG TABLET PO PRN ×4 (02:45→21:49)
[2019-04-11] MEDS ORDERED: METHADONE HCL 10 MG TABLET (FOR DETOX USE ONLY) PO ONE ×2 (09:00→10:00)
[2019-04-11] MEDS: PRENATAL VITAMINS W/ FOLIC ACID TABLET (FP) PO SCH (09:04)
[2019-04-11] MEDS: PATIENT'S OWN MEDICATION (NON-FORMULARY) (Omeprazole 20 MG) PO SCH (09:05)
[2019-04-11] MEDS: LIDOCAINE 5% TOPICAL PATCH TP SCH (09:06)
[2019-04-11] MEDS: METHYL SALICYLATE/MENTHOL OINT 30 GM TUBE TP SCH ×2 (09:06→21:51)
[2019-04-11] MEDS: LISINOPRIL 20 MG TABLET (FP) PO SCH (09:07)
[2019-04-11] MEDS ORDERED: TRIMETHOBENZAMIDE HCL 200MG/2ML INJ IM ONE (09:43)
--- NOTE | 2019-04-11 09:50 | PN ---
BHS COWS - Scale Resting Pulse: 0= [place] 80 or Below Sweatin= Chills/Flushing Restless Observation: 0= Sits Still Pupil Size: 1= Pupils >than Normal Bone or Joint Aches: 1= Mild Discomfort Runny Nose/ Eye Tearin= Nasal Congestion GI Upset > 30mins: 1= Stomach Cramp Tremor Observation of Outstretched Hands: 2= Slight Tremor Visible Yawning Observation: 1= 1-2x During Session Anxiety or Irritability: 2=Irritable/Anxious Goose Flesh Skin: 3=Piloerection COWS Score: 13 BHS Progress Note (SOAP) Subjective: 58 years old female admitted on 04/09/19 for opiate withdrawal sx management treated with methadone detox regimen patient received methadone 20mg po today 35minutes later vomited x 1 tigan 200 mg IM x 1 Objective: 04/11/19 09:47 Vital Signs Temperature 98.4 F 04/11/19 09:14 Pulse Rate 80 04/11/19 09:14 Respiratory Rate 18 04/11/19 09:14 Blood Pressure 122/85 04/11/19 09:14 O2 Sat by Pulse Oximetry (%) Laboratory Last Values WBC 6.1 K/mm3 (4.0-10.0) 04/09/19 12:30 RBC 4.56 M/mm3 (3.60-5.2) 04/09/19 12:30 Hgb 10.5 GM/dL (10.7-15.3) L 04/09/19 12:30 Hct 34.6 % (32.4-45.2) 04/09/19 12:30 MCV 75.9 fl (80-96) L 04/09/19 12:30 MCH 23.1 pg (25.7-33.7) L 04/09/19 12:30 MCHC 30.5 g/dl (32.0-36.0) L 04/09/19 12:30 RDW 17.4 % (11.6-15.6) H 04/09/19 12:30 Plt Count 386 K/MM3 (134-434) 04/09/19 12:30 MPV 7.2 fl (7.5-11.1) L 04/09/19 12:30 Sodium 137 mmol/L (136-145) 04/09/19 12:30 Potassium 4.4 mmol/L (3.5-5.1) 04/09/19 12:30 Chloride 104 mmol/L (98-107) 04/09/19 12:30 Carbon Dioxide 29 mmol/L (21-32) 04/09/19 12:30 Anion Gap 3 MMOL/L (8-16) L 04/09/19 12:30 BUN 12.4 mg/dL (7-18) 04/09/19 12:30 Creatinine 0.8 mg/dL (0.55-1.3) 04/09/19 12:30 Est GFR (CKD-EPI)AfAm 93.53 04/09/19 12:30 Est GFR (CKD-EPI)NonAf 80.70 04/09/19 12:30 Random Glucose 88 mg/dL (74-106) 04/09/19 12:30 Hemoglobin A1c % 6.4 % (4.2-6.3) H 04/10/19 05:40 Calcium 8.7 mg/dL (8.5-10.1) 04/09/19 12:30 Total Bilirubin 0.6 mg/dL (0.2-1) 04/09/19 12:30 AST 13 U/L (15-37) L 04/09/19 12:30 ALT 15 U/L (13-61) 04/09/19 12:30 Alkaline Phosphatase 86 U/L (45-117) 04/09/19 12:30 Total Protein 7.3 g/dl (6.4-8.2) 04/09/19 12:30 Albumin 3.6 g/dl (3.4-5.0) 04/09/19 12:30 RPR Titer Nonreactive (NONREACTIVE) 04/09/19 12:30 lab noted marginal [id number] begin no concentrated sugar diet and weight loss Assessment: 04/11/19 09:50 opiate withdrawal sx discuss medication assisted treatment program follow up with serum glucose, dietary regimen, weight loss Plan: continue methadone detox regimen berry picker narcan from pharmacy
[2019-04-11] MEDS: cloNIDine HCL 0.1 MG TABLET PO PRN ×2 (10:44→21:49)
[2019-04-11] MEDS: hydrOXYzine PAMOATE 25 MG CAPSULE (FP) PO PRN ×2 (10:44→21:49)
[2019-04-11] MEDS ORDERED: IBUPROFEN 400 MG TABLET (FP) PO ONE (13:45)
[2019-04-11] MEDS: MELATONIN 5 MG TABLETS PO PRN (21:49)
[2019-04-11] MEDS: THIAMINE HCL 100 MG TABLET (FP) PO SCH (21:49)
[2019-04-11] MEDS: LIDOCAINE PATCH REMOVAL MC SCH (21:52)
[2019-04-12] MEDS: hydrOXYzine PAMOATE 25 MG CAPSULE (FP) PO PRN ×3 (02:52→23:35)
[2019-04-12] MEDS: METHOCARBAMOL 500 MG TABLET PO PRN ×4 (07:21→23:35)
[2019-04-12] MEDS ORDERED: METHADONE (DETOX) 10 MG, METHADONE (DETOX) 5 MG PO ONE ×2 (09:00→10:00)
[2019-04-12] MEDS ORDERED: METHADONE HCL 10 MG TABLET (FOR DETOX USE ONLY) ONE (09:06)
[2019-04-12] MEDS ORDERED: METHADONE HCL 5 MG TABLET (FOR DETOX USE ONLY) ONE (09:06)
[2019-04-12] MEDS: LISINOPRIL 20 MG TABLET (FP) PO SCH (09:54)
[2019-04-12] MEDS: PATIENT'S OWN MEDICATION (NON-FORMULARY) (Omeprazole 20 MG) PO SCH (09:54)
[2019-04-12] MEDS: PRENATAL VITAMINS W/ FOLIC ACID TABLET (FP) PO SCH (09:54)
[2019-04-12] MEDS: METHYL SALICYLATE/MENTHOL OINT 30 GM TUBE TP SCH ×2 (09:55→21:29)
[2019-04-12] MEDS: LIDOCAINE 5% TOPICAL PATCH TP SCH (09:55)
--- NOTE | 2019-04-12 10:34 | PN ---
BHS COWS - Scale Resting Pulse: 0= [place] 80 or Below Sweatin= Chills/Flushing Restless Observation: 0= Sits Still Pupil Size: 1= Pupils >than Normal Bone or Joint Aches: 2= Severe Diffuse Aches Runny Nose/ Eye Tearin= Nasal Congestion GI Upset > 30mins: 1= Stomach Cramp Tremor Observation of Outstretched Hands: 2= Slight Tremor Visible Yawning Observation: 1= 1-2x During Session Anxiety or Irritability: 2=Irritable/Anxious Goose Flesh Skin: 0=Smooth Skin COWS Score: 11 BHS Progress Note (SOAP) Subjective: 58 years old female admitted on 04/09/19 for opiate withdrawal sx management treated with methadone detox regimen ambulating on hallway social with peers in day room discuss medication assisted treatment program lease picker narcan from pharmacy Objective: 04/12/19 10:38 Vital Signs Temperature 97.6 F 04/12/19 09:26 Pulse Rate 68 04/12/19 09:26 Respiratory Rate 18 04/12/19 09:26 Blood Pressure 124/75 04/12/19 09:26 O2 Sat by Pulse Oximetry (%) Laboratory Last Values WBC 6.1 K/mm3 (4.0-10.0) 04/09/19 12:30 RBC 4.56 M/mm3 (3.60-5.2) 04/09/19 12:30 Hgb 10.5 GM/dL (10.7-15.3) L 04/09/19 12:30 Hct 34.6 % (32.4-45.2) 04/09/19 12:30 MCV 75.9 fl (80-96) L 04/09/19 12:30 MCH 23.1 pg (25.7-33.7) L 04/09/19 12:30 MCHC 30.5 g/dl (32.0-36.0) L 04/09/19 12:30 RDW 17.4 % (11.6-15.6) H 04/09/19 12:30 Plt Count 386 K/MM3 (134-434) 04/09/19 12:30 MPV 7.2 fl (7.5-11.1) L 04/09/19 12:30 Sodium 137 mmol/L (136-145) 04/09/19 12:30 Potassium 4.4 mmol/L (3.5-5.1) 04/09/19 12:30 Chloride 104 mmol/L (98-107) 04/09/19 12:30 Carbon Dioxide 29 mmol/L (21-32) 04/09/19 12:30 Anion Gap 3 MMOL/L (8-16) L 04/09/19 12:30 BUN 12.4 mg/dL (7-18) 04/09/19 12:30 Creatinine 0.8 mg/dL (0.55-1.3) 04/09/19 12:30 Est GFR (CKD-EPI)AfAm 93.53 04/09/19 12:30 Est GFR (CKD-EPI)NonAf 80.70 04/09/19 12:30 Random Glucose 88 mg/dL (74-106) 04/09/19 12:30 Hemoglobin A1c % 6.4 % (4.2-6.3) H 04/10/19 05:40 Calcium 8.7 mg/dL (8.5-10.1) 04/09/19 12:30 Total Bilirubin 0.6 mg/dL (0.2-1) 04/09/19 12:30 AST 13 U/L (15-37) L 04/09/19 12:30 ALT 15 U/L (13-61) 04/09/19 12:30 Alkaline Phosphatase 86 U/L (45-117) 04/09/19 12:30 Total Protein 7.3 g/dl (6.4-8.2) 04/09/19 12:30 Albumin 3.6 g/dl (3.4-5.0) 04/09/19 12:30 RPR Titer Nonreactive (NONREACTIVE) 04/09/19 12:30 lab noted Assessment: 04/12/19 10:38 opiate withdrawal sx Plan: continue methadone detox regimen
[2019-04-12] MEDS: THIAMINE HCL 100 MG TABLET (FP) PO SCH (21:25)
[2019-04-12] MEDS: MELATONIN 5 MG TABLETS PO PRN (21:26)
[2019-04-12] MEDS: LIDOCAINE PATCH REMOVAL MC SCH (21:29)
[2019-04-13] MEDS ORDERED: METHADONE HCL 5 MG TABLET (FOR DETOX USE ONLY) PO ONE (05:00)
[2019-04-13] MEDS: METHOCARBAMOL 500 MG TABLET PO PRN (05:26)
[2019-04-13] MEDS ORDERED: METHADONE HCL 10 MG TABLET (FOR DETOX USE ONLY) PO ONE ×2 (09:00→10:00)
[2019-04-13 09:20] VITALS: BP 122/82; PULSE 91; TEMP 96.7
--- NOTE | 2019-04-13 09:43 | PN ---
BHS COWS - Scale Resting Pulse: 1= [place] 81-100 Sweatin= No chills or Flushing Restless Observation: 0= Sits Still Pupil Size: 0= Normal to Room Light Bone or Joint Aches: 0= None Runny Nose/ Eye Tearin= None GI Upset > 30mins: 0= None Tremor Observation of Outstretched Hands: 0= None Yawning Observation: 0= None Anxiety or Irritability: 1=Feels Anxious/Irritable Goose Flesh Skin: 0=Smooth Skin COWS Score: 2 BHS Progress Note (SOAP) Subjective: alert,no complaint Objective: 04/13/19 09:42 Vital Signs Temperature 96.7 F L 04/13/19 09:20 Pulse Rate 91 H 04/13/19 09:20 Respiratory Rate 18 04/13/19 09:20 Blood Pressure 122/82 04/13/19 09:20 O2 Sat by Pulse Oximetry (%) Assessment: 04/13/19 09:42 detox completed,no withdrawal symptom Plan: discharge today,follow up with after care program as arrangement
--- NOTE | 2019-04-13 09:47 | DS ---
[facility] Detox Discharge Summary Admission Date: 04/09/19 Discharge Date: 04/13/19 - History Present History: Opioid Dependence Additional Comments: follow up with after [facility] program as arrangement and pmd for medical problem Pertinent Past History: type 2 dm hypertension gerd low teo pain arthritis gerd - Physical Exam Results Vital Signs: Vital Signs Temperature 96.7 F L 04/13/19 09:20 Pulse Rate 91 H 04/13/19 09:20 Respiratory Rate 18 04/13/19 09:20 Blood Pressure 122/82 04/13/19 09:20 O2 Sat by Pulse Oximetry (%) Pertinent Admission Physical Exam Findings: withdrawal signs and symptom Laboratory 04/09/19 04/09/19 04/09/19 12:30 12:30 12:30 WBC 6.1 K/mm3 K/mm3 (4.0-10.0) RBC 4.56 M/mm3 M/mm3 (3.60-5.2) Hgb 10.5 GM/dL L GM/dL (10.7-15.3) Hct 34.6 % % (32.4-45.2) MCV 75.9 fl L fl (80-96) MCH 23.1 pg L pg (25.7-33.7) MCHC 30.5 g/dl L g/dl (32.0-36.0) RDW 17.4 % H % (11.6-15.6) Plt Count 386 K/MM3 K/MM3 (134-434) MPV 7.2 fl L fl (7.5-11.1) Sodium 137 mmol/L mmol/L (136-145) Potassium 4.4 mmol/L mmol/L (3.5-5.1) Chloride 104 mmol/L mmol/L (98-107) Carbon Dioxide 29 mmol/L mmol/L (21-32) Anion Gap 3 MMOL/L L MMOL/L (8-16) BUN 12.4 mg/dL mg/dL (7-18) Creatinine 0.8 mg/dL mg/dL (0.55-1.3) Est GFR (CKD-EPI)AfAm 93.53 Est GFR (CKD-EPI)NonAf 80.70 Random Glucose 88 mg/dL mg/dL (74-106) Hemoglobin A1c % Calcium 8.7 mg/dL mg/dL (8.5-10.1) Total Bilirubin 0.6 mg/dL mg/dL (0.2-1) AST 13 U/L L U/L (15-37) ALT 15 U/L U/L (13-61) Alkaline Phosphatase 86 U/L U/L (45-117) Total Protein 7.3 g/dl g/dl (6.4-8.2) Albumin 3.6 g/dl g/dl (3.4-5.0) RPR Titer Nonreactive (NONREACTIVE) 04/10/19 05:40 WBC RBC Hgb Hct MCV MCH MCHC RDW Plt Count MPV Sodium Potassium Chloride Carbon Dioxide Anion Gap BUN Creatinine Est GFR (CKD-EPI)AfAm Est GFR (CKD-EPI)NonAf Random Glucose Hemoglobin A1c % 6.4 % H % (4.2-6.3) Calcium Total Bilirubin AST ALT Alkaline Phosphatase Total Protein Albumin RPR Titer Laboratory Last Values WBC 6.1 K/mm3 (4.0-10.0) 04/09/19 12:30 RBC 4.56 M/mm3 (3.60-5.2) 04/09/19 12:30 Hgb 10.5 GM/dL (10.7-15.3) L 04/09/19 12:30 Hct 34.6 % (32.4-45.2) 04/09/19 12:30 MCV 75.9 fl (80-96) L 04/09/19 12:30 MCH 23.1 pg (25.7-33.7) L 04/09/19 12:30 MCHC 30.5 g/dl (32.0-36.0) L 04/09/19 12:30 RDW 17.4 % (11.6-15.6) H 04/09/19 12:30 Plt Count 386 K/MM3 (134-434) 04/09/19 12:30 MPV 7.2 fl (7.5-11.1) L 04/09/19 12:30 Sodium 137 mmol/L (136-145) 04/09/19 12:30 Potassium 4.4 mmol/L (3.5-5.1) 04/09/19 12:30 Chloride 104 mmol/L (98-107) 04/09/19 12:30 Carbon Dioxide 29 mmol/L (21-32) 04/09/19 12:30 Anion Gap 3 MMOL/L (8-16) L 04/09/19 12:30 BUN 12.4 mg/dL (7-18) 04/09/19 12:30 Creatinine 0.8 mg/dL (0.55-1.3) 04/09/19 12:30 Est GFR (CKD-EPI)AfAm 93.53 04/09/19 12:30 Est GFR (CKD-EPI)NonAf 80.70 04/09/19 12:30 Random Glucose 88 mg/dL (74-106) 04/09/19 12:30 Hemoglobin A1c % 6.4 % (4.2-6.3) H 04/10/19 05:40 Calcium 8.7 mg/dL (8.5-10.1) 04/09/19 12:30 Total Bilirubin 0.6 mg/dL (0.2-1) 04/09/19 12:30 AST 13 U/L (15-37) L 04/09/19 12:30 ALT 15 U/L (13-61) 04/09/19 12:30 Alkaline Phosphatase 86 U/L (45-117) 04/09/19 12:30 Total Protein 7.3 g/dl (6.4-8.2) 04/09/19 12:30 Albumin 3.6 g/dl (3.4-5.0) 04/09/19 12:30 RPR Titer Nonreactive (NONREACTIVE) 04/09/19 12:30 - Treatment Hospital Course: Detox Protocol Followed, Detoxed Safely, Responded well, Discharged Condition Good Patient has Accepted a Rehab Referral to: declined - Medication Discharge Medications: Ambulatory Orders Albuterol Sulfate [Proventil HFA Inhaler -] 2 inh PO TID PRN #1 hfa.aer.ad 01/17 Lisinopril 20 mg PO DAILY #30 tablet 01/17/19 Esomeprazole Magnesium [Nexium 24Hr] 20 mg PO 04/10/19 Omeprazole 20 mg PO DAILY 04/10/19 Naloxone HCl [Narcan] 4 mg NS ASDIR PRN #1 spray 04/11/19 - Diagnosis (1) Arthritis Current Visit: Yes Status: Acute (2) Essential hypertension Current Visit: Yes Status: Acute (3) Opioid dependence with withdrawal Current Visit: Yes Status: Acute (4) Osteoarthritis of knees, bilateral Current Visit: Yes Status: Acute Qualifiers: Osteoarthritis type: primary Qualified Code(s): M17.0 - Bilateral primary osteoarthritis of knee (5) DM2 (diabetes mellitus, type 2) Current Visit: Yes Status: Chronic Qualifiers: Diabetes mellitus continuous churn buttermaker insulin use: without continuous churn buttermaker use Diabetes mellitus complication status: without complication Qualified Code(s): E11.9 - Type 2 diabetes mellitus without complications (6) GERD (gastroesophageal reflux disease) Current Visit: Yes Status: Chronic Qualifiers: Esophagitis presence: esophagitis presence not specified Qualified Code(s) : K21.9 - Gastro-esophageal reflux disease without esophagitis (7) History of breast cancer Current Visit: Yes Status: Chronic (8) Low back pain Current Visit: Yes Status: Chronic Qualifiers: Chronicity: chronic Back pain laterality: unspecified Sciatica presence: without sciatica Qualified Code(s): M54.5 - Low back pain; G89.29 - Other chronic pain
[2019-04-14] MEDS ORDERED: METHADONE HCL 5 MG TABLET (FOR DETOX USE ONLY) PO ONE (06:00)
== END 2019-04-13 09:41 | disposition home or self-care (01) | DRG 897 ==
LOC: YASAS 10:47 → Y3N 13:00
PROVIDERS: ADMIT Allergy & Immunology; ATTEND Allergy & Immunology
PROC: HZ2ZZZZ Detoxification Services for Substance Abuse Treatment (ICD-10-PCS; principal; 2019-04-09)
DX: F11.23 Opioid dependence with withdrawal (principal); I10 Essential (primary) hypertension; E11.9 Type 2 diabetes mellitus without complications; K21.9 Gastro-esophageal reflux disease without esophagitis; K22.70 Barrett's esophagus without dysplasia; J45.909 Unspecified asthma, uncomplicated; M17.0 Bilateral primary osteoarthritis of knee; M12.9 Arthropathy, unspecified; M54.5 Low back pain; G89.29 Other chronic pain; Z85.3 Personal history of malignant neoplasm of breast
CPT/HCPCS: 36415; 80053; 83036; 85027; 86593; J0735; Q2036

== ENCOUNTER 2019-07-30 08:47 | Inpatient (IN) | payer BC ==
--- NOTE | 2019-07-30 09:06 | BHS.RME ---
Substance Use & Tx History - Substance Use History Opiates (Heroin) Substance amount: 10 bags Frequency of use: Daily Substance route: Inhalation (ex: sniffing or snorting) Date of Last Use: 07/29/19 Opiates (Other) Substance amount: oxy 5 mg or 10 mg, 6 tabs Frequency of use: Daily Substance route: Oral Date of Last Use: 07/29/19 Physical/Psych/Mental Status - Behavior General Behavior: Decreased activity Eye Contact: Normal - Cooperativeness Cooperativeness: Cooperative - Physical Health Problems Is patient presently having any pain?: Yes (chronic left shoulder pain, today is worse) Does patient presently have any injuries (include location): No Does patient currently have a fever: No Is patient : No COWS - Scale Resting Pulse: 1= [place] [id number] Sweatin=Flushed/Facial Moisture Restless Observation: 0= Sits Still Pupil Size: 0= Normal to Room Light Bone or Joint Aches: 1= Mild Discomfort Runny Nose/ Eye Tearin= Runny Nose/Eyes GI Upset > 30mins: 0= None Tremor Observation: 2= Slight Tremor Visible Yawning Observation: 0= None Anxiety or Irritability: 1=Feels Anxious/Irritable Goose Flesh Skin: 0=Smooth Skin COWS Score: 9
[2019-07-30 09:42] VITALS: BMI 32.1
--- NOTE | 2019-07-30 10:06 | HP ---
COWS - Scale Resting Pulse: 1= [place] 81-100 Sweatin=Flushed/Facial Moisture Restless Observation: 0= Sits Still Pupil Size: 0= Normal to Room Light Bone or Joint Aches: 1= Mild Discomfort Runny Nose/ Eye Tearin= Runny Nose/Eyes GI Upset > 30mins: 0= None Tremor Observation: 2= Slight Tremor Visible Yawning Observation: 0= None Anxiety or Irritability: 1=Feels Anxious/Irritable Goose Flesh Skin: 0=Smooth Skin COWS Score: 9 CIWA Score - Admission Criteria OASAS Guidelines: Admission for Medically Managed Detox: Requires at least one of the followin. CIWA greater than 12 2. Seizures within the past 24 hours 3. Delirium tremens within the past 24 hours 4. Hallucinations within the past 24 hours 5. Acute intervention needed for co occurring medical disorder 6. Acute intervention needed for co occurring psychiatric disorder 7. Severe withdrawal that cannot be handled at a lower level of care (continued vomiting, continued diarrhea, abnormal vital signs) requiring intravenous medication and/or fluids 8. Admitting History and Physical - Admission Chief Complaint: Ms. Grimes presents to [facility] stating " I finally admitted I 'm an addict, opiods". She is requesting admission to detox. History of Present Illness: Ms. Grimes presents to [facility] stating " I finally admitted I'm an addict, opiods". She is requesting admission to detox. She was last admitted here on Apr 09 to Apr 13, 2019. She relapsed to opiate use in May 2019. PMH: prediabetic (HgA1c 6.3), asthma on inhaler, osteopenia, HTN, Enciso's esophagitis, bilateral torn knee meniscus PSH: hysterectomy, right rotator cuff repair, left breast lumpectomy/benign Psych: none Substance use history Oxcondone: dialy 5-10 mg tabs, 6 tabs daily, first use one mos ago, last use yesterday, no OD Heroin: 10 bags/day, snotrts, first use age 49y, last use last night. Not on methadone Nicotine: none - Past Medical History Cardiovascular: Yes: HTN Pulmonary: Yes: Asthma ...: No - Past Surgical History Past Surgical History: Yes: None - Smoking History Smoking history: Never smoked Have you smoked in the past 12 months: No - Alcohol/Substance Use Hx Alcohol Use: No History of Substance Use: reports: Heroin Date of Last Use: 04/09/19 - Social History ADL: Independent Occupation: former nurse History of Recent Travel: No Admission ROS [facility] - [facility] Allergies/Adverse Reactions: Allergies Allergy/AdvReac Type Severity Reaction Status Date / Time No Known Allergies Allergy Verified 07/30/19 09:28 - Ebola screening Have you traveled outside of the country in the last 21 days: No Have you had contact with anyone from an Ebola affected area: No Have you been sick,other than usual withdrawal symptoms: No Do you have a fever: No - Review of Systems Constitutional: No Symptoms Reported EENT: reports: No Symptoms Reported Respiratory: reports: No Symptoms reported Cardiac: reports: No Symptoms Reported GI: reports: No Symptoms Reported : reports: No Symptoms Reported Musculoskeletal: reports: Back Pain, Joint Pain (hx of arthritis) Integumentary: reports: No Symptoms Reported Neuro: reports: No Symptoms reported Endocrine: reports: No Symptoms Reported Hematology: reports: No Symptoms Reported Psychiatric: reports: Agitated, Anxious Patient History - Patient Medical History Hx Anemia: No Hx Asthma: Yes Hx Chronic Obstructive Pulmonary Disease (COPD): No Hx Cancer: Yes (hx left breast cancer -- lumpectomy, benign) Hx Cardiac Disorders: No Hx Congestive Heart Failure: No Hx Hypertension: Yes Hx Hypercholesterolemia: No Hx Pacemaker: No HX Cerebrovascular Accident: No Hx Seizures: No Hx Dementia: No Hx Diabetes: Yes (pre) Hx Gastrointestinal Disorders: No Hx Liver Disease: No Hx Genitourinary Disorders: No Hx Sexually Transmitted Disorders: No Hx Renal Disease (ESRD): No Hx Thyroid Disease: No Hx Human Immunodeficiency Virus (HIV): No Hx Hepatitis C: No Hx Depression: No Hx Suicide Attempt: No Hx Bipolar Disorder: No Hx Schizophrenia: No - Patient Surgical History Past Surgical History: No Hx Neurologic Surgery: No Hx Cataract Extraction: No Hx Cardiac Surgery: No Hx Lung Surgery: No Hx Breast Surgery: Yes (left breast lumpectomy 2005, benign) Hx Breast Biopsy: No Hx Abdominal Surgery: Yes (hernia repair 2012) Hx Appendectomy: No Hx Cholecystectomy: No Hx Genitourinary Surgery: Yes (bladder/sling 2013) Hx Section: No Hx Orthopedic Surgery: No Hx Hysterectomy: Yes (2015) Anesthesia Reaction: No - PPD History Results: CXR Needed - Reproductive History Patient : No - Smoking Cessation Smoking history: Never smoked Have you smoked in the past 12 months: No Cigars Per Day: 0 Hx Chewing Tobacco Use: No Initiated information on smoking cessation: No - Substances abused [id number] Substance route: Inhalation Frequency: Daily Amount used: 10bags Age of first use: 49 Date of last use: 07/29/19 Oxycontin Other (specify): oxycodone Substance route: Oral Frequency: Daily Amount used: 6 pills (5mg) Age of first use: 59 Date of last use: 07/27/19 Admission Physical Exam [facility] - Vital Signs Vital Signs: Vital Signs - 24 hr 07/30/19 09:36 Temperature 97.6 F Pulse Rate 90 Respiratory 18 Rate Blood Pressure 153/98 - Physical General Appearance: Yes: Within Normal Limits, Irritable, Anxious HEENTM: Yes: Hearing grossly Normal, Normocephalic, Normal Voice Respiratory: Yes: Lungs Clear, Normal Breath Sounds Breast: Yes: Breast Exam Deferred Cardiology: Yes: Regular Rate, S1, S2 Abdominal: Yes: Non Tender, Flat, Soft, Decreased BS Genitourinary: Yes: Other (deferred) Back: Yes: Normal Inspection Musculoskeletal: Yes: Within Normal Limits Extremities: Yes: Within Normal Limits Neurological: Yes: Within Normal Limits Integumentary: Yes: Within Normal Limits, Other (tattoo left posterior shoulder) - Diagnostic (1) Arthritis Current Visit: No Status: Chronic (2) 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 (3) Opioid dependence with withdrawal Current Visit: Yes Status: Acute (4) HTN (hypertension) Current Visit: Yes Status: Acute Qualifiers: Hypertension type: essential hypertension Qualified Code(s): I10 - Essential (primary) hypertension Comment: on meds, sees primary Cleared for Admission S - Detox or Rehab [facility] Level of Care: Medically Managed Breathalyzer - Breathalyzer Breathalyzer: 0 Urine Drug Screen - Test Device Lot number: [id number] Expiration date: 04/28/21 - Control Is test valid?: Yes - Results Drug screen NEGATIVE: No Urine drug screen results: MOP-Opiates Inpatient Rehab Admission - Rehab Decision to Admit Inpatient rehab admission?: No
[2019-07-30] MEDS ORDERED: cloNIDine HCL 0.1 MG TABLET PO PRN (10:12)
[2019-07-30] MEDS ORDERED: BISMUTH SUBSALICYLATE 524 MG/30 ML UD PO PRN (10:12)
[2019-07-30] MEDS ORDERED: MAGNESIUM CITRATE 300 ML BOTTLE PO PRN (10:12)
[2019-07-30] MEDS ORDERED: MAG HYDROX/AL HYDROX/SIMETH 30 ML UNIT-DOSE CUP PO PRN (10:12)
[2019-07-30] MEDS ORDERED: MAGNESIUM HYDROX 2400MG/30ML ORAL SUSPENSION 30 ML CUP PO PRN (10:12)
[2019-07-30] MEDS ORDERED: ACETAMINOPHEN 325 MG TABLET (FP) PO PRN ×2 (10:12)
[2019-07-30] MEDS ORDERED: ONDANSETRON *ODT* 4 MG TABLET SL ONE (10:12)
[2019-07-30] MEDS ORDERED: MENTHOL/PHENOL 1 EACH UD MM PRN (10:12)
[2019-07-30] MEDS ORDERED: ALBUTEROL SO4 HFA INHALER IH PRN (10:16)
[2019-07-30] MEDS ORDERED: METHADONE HCL 10 MG TABLET (FOR DETOX USE ONLY) PO ONE (10:30)
[2019-07-30] MEDS: LISINOPRIL 10 MG TABLET (FP) PO SCH (11:06)
[2019-07-30] MEDS ORDERED: hydrOXYzine PAMOATE 25 MG CAPSULE (FP) PO PRN (11:25)
[2019-07-30] MEDS: IBUPROFEN 400 MG TABLET (FP) PO PRN (13:23)
[2019-07-30] MEDS: METHOCARBAMOL 500 MG TABLET PO PRN ×2 (13:24→22:10)
[2019-07-30] MEDS ORDERED: PANTOPRAZOLE 40 MG TABLET PO SCH (13:30)
[2019-07-30] MEDS: hydrOXYzine PAMOATE 25 MG CAPSULE (FP) PO SCH ×3 (14:14→22:10)
[2019-07-30 15:15] LABS: HEMOGLOBIN 9.1 GM/dL (10.7-15.3); MCH 20.9 pg (25.7-33.7); MCHC 30.4 g/dl (32.0-36.0); MEAN CELL VOLUME 68.6 fl (80-96); PLATELET COUNT 401 K/MM3 (134-434); RBC 4.38 M/mm3 (3.60-5.2); RDW 16.8 % (11.6-15.6); WHITE BLOOD COUNT 5.7 K/mm3 (4.0-10.0)
[2019-07-30 15:26] LABS: ALBUMIN 3.8 g/dl (3.4-5.0); BILIRUBIN,TOTAL 0.6 mg/dL (0.2-1); BLOOD UREA NITROGEN 15.8 mg/dL (7-18); CALCIUM 8.7 mg/dL (8.5-10.1); CREATININE 0.8 mg/dL (0.55-1.3); POTASSIUM 4.8 mmol/L (3.5-5.1); TOT PROT 7.6 g/dl (6.4-8.2)
[2019-07-30] MEDS: MELATONIN 5 MG TABLETS PO SCH (22:10)
[2019-07-30] MEDS: THIAMINE HCL 100 MG TABLET (FP) PO SCH (22:10)
[2019-07-31] MEDS: IBUPROFEN 400 MG TABLET (FP) PO PRN ×2 (03:08→12:31)
[2019-07-31] MEDS: hydrOXYzine PAMOATE 25 MG CAPSULE (FP) PO SCH ×5 (06:24→22:00)
[2019-07-31] MEDS ORDERED: METHADONE HCL 10 MG TABLET (FOR DETOX USE ONLY) ONE (09:19)
[2019-07-31] MEDS ORDERED: METHADONE HCL 5 MG TABLET (FOR DETOX USE ONLY) ONE (09:19)
[2019-07-31] MEDS ORDERED: METHADONE (DETOX) 20 MG, METHADONE (DETOX) 5 MG PO ONE (10:00)
[2019-07-31] MEDS ORDERED: PATIENT'S OWN MEDICATION (NON-FORMULARY) (Omeprazole 20 MG) PO SCH (10:00)
[2019-07-31] MEDS: PRENATAL VITAMINS W/ FOLIC ACID TABLET (FP) PO SCH (10:44)
[2019-07-31] MEDS: LISINOPRIL 10 MG TABLET (FP) PO SCH (10:45)
[2019-07-31] MEDS: PRILOSEC 40 MG PO SCH (10:45)
[2019-07-31] MEDS: METHOCARBAMOL 500 MG TABLET PO PRN ×2 (12:35→22:00)
--- NOTE | 2019-07-31 13:31 | PN ---
[facility]HS COWS - Scale Resting Pulse: 0= [place] 80 or Below Sweatin= No chills or Flushing Restless Observation: 1= Difficult to Sit Still Pupil Size: 1= Pupils >than Normal Bone or Joint Aches: 1= Mild Discomfort Runny Nose/ Eye Tearin= Nasal Congestion GI Upset > 30mins: 1= Stomach Cramp Tremor Observation of Outstretched Hands: 2= Slight Tremor Visible Yawning Observation: 1= 1-2x During Session Anxiety or Irritability: 2=Irritable/Anxious Goose Flesh Skin: 0=Smooth Skin COWS Score: 10 BHS Progress Note (SOAP) Subjective: alert,irritable,anxious,interrupted sleep,pain in the body Objective: 07/31/19 13:28 Vital Signs Temperature 98.2 F 07/31/19 09:02 Pulse Rate 78 07/31/19 09:02 Respiratory Rate 18 07/31/19 09:02 Blood Pressure 156/84 07/31/19 09:02 O2 Sat by Pulse Oximetry (%) Laboratory Last Values WBC 5.7 K/mm3 (4.0-10.0) 07/30/19 10:30 RBC 4.38 M/mm3 (3.60-5.2) 07/30/19 10:30 Hgb 9.1 GM/dL (10.7-15.3) L 07/30/19 10:30 Hct 30.0 % (32.4-45.2) L 07/30/19 10:30 MCV 68.6 fl (80-96) L 07/30/19 10:30 MCH 20.9 pg (25.7-33.7) L 07/30/19 10:30 MCHC 30.4 g/dl (32.0-36.0) L 07/30/19 10:30 RDW 16.8 % (11.6-15.6) H 07/30/19 10:30 Plt Count 401 K/MM3 (134-434) 07/30/19 10:30 MPV 7.0 fl (7.5-11.1) L 07/30/19 10:30 Sodium 139 mmol/L (136-145) 07/30/19 10:30 Potassium 4.8 mmol/L (3.5-5.1) 07/30/19 10:30 Chloride 106 mmol/L (98-107) 07/30/19 10:30 Carbon Dioxide 28 mmol/L (21-32) 07/30/19 10:30 Anion Gap 5 MMOL/L (8-16) L 07/30/19 10:30 BUN 15.8 mg/dL (7-18) 07/30/19 10:30 Creatinine 0.8 mg/dL (0.55-1.3) 07/30/19 10:30 Est GFR (CKD-EPI)AfAm 92.87 07/30/19 10:30 Est GFR (CKD-EPI)NonAf 80.13 07/30/19 10:30 POC Glucometer 105 UNITS (80-120) 07/31/19 06:23 Random Glucose 97 mg/dL (74-106) 07/30/19 10:30 Calcium 8.7 mg/dL (8.5-10.1) 07/30/19 10:30 Total Bilirubin 0.6 mg/dL (0.2-1) 07/30/19 10:30 AST 18 U/L (15-37) 07/30/19 10:30 ALT 21 U/L (13-61) 07/30/19 10:30 Alkaline Phosphatase 88 U/L (45-117) 07/30/19 10:30 Total Protein 7.6 g/dl (6.4-8.2) 07/30/19 10:30 Albumin 3.8 g/dl (3.4-5.0) 07/30/19 10:30 RPR Titer Nonreactive (NONREACTIVE) 07/30/19 10:30 07/31/19 13:29 history of anemia on iron Assessment: 07/31/19 13:30 withdrawal symptom Plan: continue detox methadone regimen,ferrous sulfate 325 mgs po daily
[2019-07-31] MEDS: THIAMINE HCL 100 MG TABLET (FP) PO SCH (21:58)
[2019-07-31] MEDS: MELATONIN 5 MG TABLETS PO SCH (21:59)
[2019-08-01] MEDS: IBUPROFEN 400 MG TABLET (FP) PO PRN (04:04)
[2019-08-01] MEDS: hydrOXYzine PAMOATE 25 MG CAPSULE (FP) PO SCH ×2 (05:55→10:24)
[2019-08-01 06:30] VITALS: TEMP 98.2
[2019-08-01] MEDS: METHOCARBAMOL 500 MG TABLET PO PRN (07:26)
[2019-08-01] MEDS ORDERED: COLLOIDAL OATMEAL 1 BAR EACH TP PRN (08:37)
[2019-08-01 09:25] VITALS: BP 142/91; PULSE 79
--- NOTE | 2019-08-01 09:27 | PN ---
BHS COWS - Scale Resting Pulse: 0= [place] 80 or Below Sweatin= No chills or Flushing Restless Observation: 1= Difficult to Sit Still Pupil Size: 0= Normal to Room Light Bone or Joint Aches: 1= Mild Discomfort Runny Nose/ Eye Tearin= None GI Upset > 30mins: 1= Stomach Cramp Tremor Observation of Outstretched Hands: 2= Slight Tremor Visible Yawning Observation: 1= 1-2x During Session Anxiety or Irritability: 2=Irritable/Anxious Goose Flesh Skin: 0=Smooth Skin COWS Score: 8 BHS Progress Note (SOAP) Subjective: alert,irritable,anxious,interrupted sleep,pain in the body Objective: 08/01/19 09:26 Vital Signs Temperature 98.2 F 08/01/19 09:00 Pulse Rate 79 08/01/19 09:00 Respiratory Rate 19 08/01/19 09:00 Blood Pressure 142/91 08/01/19 09:00 O2 Sat by Pulse Oximetry (%) Assessment: 08/01/19 09:26 withdrawal symptom,continue detox methadone regimen,aveeno soap Plan: continue detox methadone regimen
[2019-08-01] MEDS ORDERED: METHADONE HCL 10 MG TABLET (FOR DETOX USE ONLY) PO ONE (10:00)
[2019-08-01] MEDS ORDERED: FERROUS SO4 325 MG TABLET (FP) PO SCH (10:00)
[2019-08-01] MEDS: PRENATAL VITAMINS W/ FOLIC ACID TABLET (FP) PO SCH (10:22)
[2019-08-01] MEDS: PRILOSEC 40 MG PO SCH (10:22)
[2019-08-01] MEDS: LISINOPRIL 10 MG TABLET (FP) PO SCH (10:22)
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
[2019-08-02] MEDS ORDERED: METHADONE (DETOX) 10 MG, METHADONE (DETOX) 5 MG PO ONE (10:00)
[2019-08-03] MEDS ORDERED: METHADONE HCL 10 MG TABLET (FOR DETOX USE ONLY) PO ONE (10:00)
[2019-08-04] MEDS ORDERED: METHADONE HCL 5 MG TABLET (FOR DETOX USE ONLY) PO ONE (06:00)
== END 2019-08-01 11:01 | disposition home or self-care (01) | DRG 897 ==
LOC: YASAS 08:47 → Y6N 10:24
PROVIDERS: ADMIT Allergy & Immunology; ATTEND Allergy & Immunology
PROC: HZ2ZZZZ Detoxification Services for Substance Abuse Treatment (ICD-10-PCS; principal; 2019-07-30)
DX: F11.23 Opioid dependence with withdrawal (principal); J45.901 Unspecified asthma with (acute) exacerbation; I10 Essential (primary) hypertension; E11.9 Type 2 diabetes mellitus without complications; K21.9 Gastro-esophageal reflux disease without esophagitis; K22.70 Barrett's esophagus without dysplasia; D64.9 Anemia, unspecified; M12.9 Arthropathy, unspecified; M54.5 Low back pain; G89.29 Other chronic pain; Z85.3 Personal history of malignant neoplasm of breast; F91.8 Other conduct disorders; Z91.19 Patient's noncompliance with other medical treatment and regimen
CPT/HCPCS: 36415; 71046-TC-FY; 80053; 82962; 85027; 86593; J0735